=== PATIENT | male | born 1955 | race Caucasian/White ===

== ENCOUNTER → 2018-07-09 13:27 | Outpatient (CLI) | payer OTHER, SELFPAY ==
--- NOTE | 2018-07-09 | DI.MRI.S_ITS ---
PROCEDURE: MR SHOULDER LT W CON INDICATIONS: RADICULOPATHY LUMBAR REGION TECHNIQUE: After the administration of 12 mL of dilute intra-articular Gadolinium contrast, oblique coronal T1 and T2 spin echo with fat saturation, oblique sagittal T1 spin echo with and without fat saturation, oblique sagittal T2 fast spin echo with fat saturation, axial T1 spin echo with fat saturation through the shoulder. COMPARISON: [facility], MR, SHOULDER WITH CONTRAST, 09/20/2016, 14:23. FINDINGS: Image quality: Excellent. Rotator cuff: The supraspinatus, infraspinatus, and subscapularis tendons appear intact throughout. No rotator cuff muscle atrophy on sagittal images. Bones and bursae: No bone marrow contusions or fractures. Moderate acromioclavicular joint degeneration and moderate to severe glenohumeral joint degeneration. The acromion demonstrates conventional anatomy, without an os acromiale. Capsule and soft tissues: There is circumferential tear of the labrum. The previously described buckle handle appearance in the superior labrum is less evident, possibly due to scarring. The anterior component of the tear is associated with periosteal irregularity of the glenoid. The inferior labrum has a frayed appearance with diffuse signal abnormalities. A small longitudinal tear is noted in the posterior labrum. The glenohumeral ligaments appear intact. The long head of the biceps tendon demonstrates normal location and morphology. The rotator interval appears normal, without fibrosis. The coracohumeral ligament is of normal thickness. No intra-articular bodies. IMPRESSION: 1. Circumferential tear of the labrum. The previously described bucket-handle appearance in the superior segment is less evident, which could be due to scarring. 2. No rotator cuff tear. 3. Moderate acromioclavicular and moderate to severe glenohumeral joint degeneration. Dictated by: Cherelle Warner M.D. on 07/09/2018 at 15:17 Approved by: Cherelle Warner M.D. on 07/10/2018 at 11:10
--- NOTE | 2018-07-09 | DI.RAD.S_ITS ---
PROCEDURE: FL SHOULDER INJECTION MR/CT LT INDICATIONS: RADICULOPATHY LUMBAR REGION TECHNIQUE: The indications, alternatives, benefits, risks, and complications of the procedure were explained to the patient. Written informed consent was obtained and placed in the chart. The shoulder was examined fluoroscopically and a site for needle placement chosen for entry into the glenohumeral joint from an anterior approach. The skin was prepped and draped in a sterile fashion, and 1% lidocaine infiltrated from skin down to joint capsule. A spinal needle was inserted into the glenohumeral joint, and a small amount of iodinated contrast media injected to confirm intra-articular placement of the needle tip. This was followed by approximately 12 mL dilute solution of a gadolinium containing MR contrast agent. The needle was removed and a dressing was applied. The patient was given postprocedural instructions and sent to the MR suite for MR imaging. FINDINGS: A single fluoroscopic spot image demonstrates intra-articular location of injected iodinated contrast. IMPRESSION: Successful fluoroscopically guided administration of dilute Gadolinium solution into the shoulder joint for MR arthrogram. Dictated by: Cherelle Warner M.D. on 07/09/2018 at 14:38 Approved by: Cherelle Warner M.D. on 07/09/2018 at 14:38
== END ==
PROVIDERS: PCP Family Medicine; Visit Provider Orthopaedic Surgery
DX: M25.512 Pain in left shoulder (principal); M54.16 Radiculopathy, lumbar region; S43.492A Other sprain of left shoulder joint, initial encounter; M19.012 Primary osteoarthritis, left shoulder
CPT/HCPCS: 23350; 73222; 77002

== ENCOUNTER → 2020-11-02 12:55 | Outpatient (CLI) | payer OTHER, SELFPAY ==
--- NOTE | 2020-11-02 12:57 | DI.RAD.S_ITS ---
PROCEDURE: FL SHOULDER INJECTION MR/CT RT INDICATIONS: Unspecified rotator cuff tear or rupture of right COMPARISON: None. TECHNIQUE: The indications, alternatives, benefits, risks, and complications of the procedure were explained to the patient. Written informed consent was obtained and placed in the chart. The shoulder was examined fluoroscopically and a site for needle placement chosen for entry into the glenohumeral joint from an anterior approach. The skin was prepped and draped in a sterile fashion, and 1% lidocaine infiltrated from skin down to joint capsule. A spinal needle was inserted into the glenohumeral joint, and a small amount of iodinated contrast media injected to confirm intra-articular placement of the needle tip. This was followed by approximately 12 mL dilute solution of a gadolinium containing MR contrast agent. The needle was removed and a dressing was applied. The patient was given postprocedural instructions and sent to the MR suite for MR imaging. FINDINGS: A single fluoroscopic spot image demonstrates intra-articular location of injected iodinated contrast. IMPRESSION: Successful fluoroscopically guided administration of dilute Gadolinium solution into the shoulder joint for MR arthrogram. Dictated by: Harshad Scruggs M.D. on 11/02/2020 at 16:43 Approved by: Harshad Scruggs M.D. on 11/02/2020 at 16:43
--- NOTE | 2020-11-02 12:58 | DI.MRI.S_ITS ---
PROCEDURE: MR SHOULDER RT W CON INDICATIONS: Unspecified rotator cuff tear or rupture of right TECHNIQUE: After the administration of 12 mL of dilute intra-articular Gadolinium contrast, oblique coronal T1 and T2 spin echo with fat saturation, oblique sagittal T1 spin echo with and without fat saturation, oblique sagittal T2 fast spin echo with fat saturation, axial T1 spin echo with fat saturation through the shoulder. COMPARISON: [facility], MR, SHOULDER WITH CONTRAST, 09/20/2016, 14:23. FINDINGS: Image quality: Excellent. Rotator cuff: Supraspinatus tendinopathy. Low-grade bursal surface fraying. Mild infraspinatus tendinopathy and thickening. Teres minor tendon appears intact. Subscapularis tendon grossly unremarkable. No atrophy of the rotator cuff muscles although mild diffuse fatty infiltration is present. Bones and bursae: No bone marrow contusions or fractures. Postoperative changes related to lateral resection of the clavicle. Glenohumeral degenerative joint disease. Acromion demonstrates conventional anatomy, without an os acromiale. Mild subacromial-subdeltoid bursitis. Capsule and soft tissues: Labrum: Chronic circumferential labral tear involving the inferior anterior superior and posterior segments, with associated reactive sclerosis and spurring of the glenoid rim in particular at the anterior and posterior segments. Posterior subluxed appearance of the humeral head relative to the glenoid raising the possibility of microinstability. Long head of the biceps tendon intact. The rotator interval appears normal, without fibrosis. Coracohumeral ligament intact. IMPRESSION: Supraspinatus tendinopathy with low-grade bursal surface fraying. Mild infraspinatus tendinopathy and thickening Mild subacromial-subdeltoid bursitis Chronic , ill-defined circumferential labral tear. Posterior subluxed appearance of the humeral head relative to the glenoid which raises the possibility of microinstability. Dictated by: Harshad Scruggs M.D. on 11/02/2020 at 15:06 Approved by: Harshad Scruggs M.D. on 11/02/2020 at 15:14
== END ==
PROVIDERS: PCP Family Medicine; Referring Provider Orthopaedic Surgery; Visit Provider Orthopaedic Surgery
DX: M75.101 Unspecified rotator cuff tear or rupture of right shoulder, not specified as traumatic (principal); M75.51 Bursitis of right shoulder; S43.401A Unspecified sprain of right shoulder joint, initial encounter
CPT/HCPCS: 23350; 73222; 77002

== ENCOUNTER → 2020-11-29 14:02 | Outpatient (CLI) | payer OTHER, SELFPAY ==
--- NOTE | 2020-11-29 | DI.MRI.S_ITS ---
PROCEDURE: MR LUMBAR SPINE WO CON INDICATIONS: CHRONIC LOW BACK PAIN TECHNIQUE: Noncontrast sagittal T1 spin echo and T2 fast echo, sagittal STIR, axial T1 and T2 fast spin echo through the lumbar spine. In cases with scoliosis, additional coronal T2 fast spin echo may be performed. COMPARISON: None. FINDINGS: Image quality: Diagnostic, with note made of motion artifact. Alignment and Curvature: There is normal bony alignment. Bone Marrow: Marrow is of normal overall signal. No acute vertebral body compression fractures. Spinal Cord: Conus medullaris terminates at the L1 level. Visualized cord demonstrates normal signal and size. Paraspinous Soft Tissues: No paravertebral masses. T12-L1: Normal appearance. L1-L2: Normal appearance. L2-L3: The disc height and disc signal are relatively well preserved. Mild to moderate disc bulge is seen. Mild bilateral neural foraminal narrowing is seen. Mild central canal narrowing is seen. L3-L4: The disc height and disc signal are relatively well preserved. Moderate generalized disc bulge is seen. Mild facet joint hypertrophy is seen. There is moderate left-sided and at least moderate right-sided neural foraminal narrowing seen. Mild central canal narrowing is seen. L4-L5: The disc height is well preserved. Minimal loss of disc signal is seen. At least moderate disc bulge is seen. Moderate facet joint hypertrophy is seen. There is moderate to severe bilateral neural foraminal narrowing seen, left worse than right. There is a degree of compression seen upon the exiting nerve roots. Mild central canal narrowing is seen. L5-S1: The disc height and disc signal are relatively well preserved. Mild to moderate disc bulge is seen, with a sever ticket lower left disc protrusion, as on series 7, image 14. Mild to moderate facet hypertrophy is seen. There is at least moderate bilateral neural foraminal narrowing seen. There is a degree of compression seen upon the exiting nerve roots. Minimal central canal narrowing is seen. IMPRESSION: Multiple levels of lumbar spine degenerative change are seen, which are worst inferiorly at L4-L5 and L5-S1. Dictated by: Jamal Marie M.D. on 11/29/2020 at 14:19 Approved by: Jamal Marie M.D. on 11/29/2020 at 14:22
== END ==
PROVIDERS: PCP Family Medicine; Referring Provider Orthopaedic Surgery; Visit Provider Orthopaedic Surgery
DX: M54.5 Low back pain (principal); M47.816 Spondylosis without myelopathy or radiculopathy, lumbar region; M47.817 Spondylosis without myelopathy or radiculopathy, lumbosacral region
CPT/HCPCS: 72148